=== PATIENT | female | born 1975 | race Caucasian/White ===

== ENCOUNTER 2018-01-11 10:44 | Emergency (ER) | payer BC ==
[~2018-01-11] VITALS: Ht 167.6 cm; Wt 253.1 kg
[~2018-01-11 10:44] MED LIST: ASPIRIN325 PO; AUGMENTIN 500-1 EACH PO; AZO CRANBERRY250 MG PO; CARVEDILOL12.5 MG PO; CEFUROXIME500 MG PO; CELEBREX 200 M200 M1 PO; CELEXA20 MG PO; CIPROFLOXACIN500 M1 PO; DULOXETINE HCL60 MG PO; HYDROCODONE-AP1 EAC6 PO; IBUPROFEN 800800 M1 PO; LASIX 20 MG TAB20 MG PO; LEVAQUIN 500 M500 MG PO; LISINOPRIL20 MG PO; LISINOPRIL40 MG PO; MACROBID 100 M100 M2 PO; METFORMIN HCL500 MG PO; NAPROSYN500 MG PO; NEURONTIN 300300 M1 PO; NORCO 5-325 TA1 EACH PO; ONDANSETRON HCL4 M2 PO; OXYCODONE HCL 55 MG PO; PHENERGAN 25 MG25 M1 PO; SENOKOT-S1 TA1 PO; TRAMADOL 50 MG50 MG PO; XANAX1 MG PO; XARELTO10 MG PO; ZOFRAN ODT4 MG PO
[2018-01-11 11:39] LABS: ABSOLUTE LYMPHOCYTES 2.9 thou/uL (0.8-5.3); NUCLEATED RBCS 0 /100WBC
[2018-01-11 11:41] LABS: ABSOLUTE BASOPHILS 0.2 thou/uL (0.0-0.2); ABSOLUTE EOSINOPHILS 0.9 thou/uL (0.0-0.7); ABSOLUTE MONOCYTES 0.7 thou/uL (0.0-1.2); ABSOLUTE NEUTROPHILS 5.2 thou/uL (1.6-8.1); BASOPHILS 2.2 %; EOSINOPHILS 8.7 %; HEMATOCRIT 40.3 % (37.0-47.0); HEMOGLOBIN 13.5 gm/dL (12.0-15.0); LYMPHOCYTES 29.1 %; MCH 27.9 pg (26.0-34.0); MCHC 33.4 g/dL (28.0-37.0); MCV 83.4 fL (80.0-100.0); MONOCYTES 7.2 %; PLATELET COUNT* 342 thou/uL (150-400); POLYS 52.8 %; RBC 4.83 mil/uL (4.20-5.00); RDW-CV 15.3 % (10.5-14.5); WBC 9.9 thou/uL (4.0-11.0)
[2018-01-11 11:44] LABS: ANION GAP 12 mmol/L (7-16); BUN 17 mg/dL (7-18); CALCIUM 9.2 mg/dL (8.5-10.1); CHLORIDE 101 mmol/L (98-107); CO2 27 mmol/L (21-32); CREATININE 1.1 mg/dL (0.6-1.3); GLUCOSE 225 mg/dL (70-99); SODIUM 140 mmol/L (136-145)
[2018-01-11 11:46] LABS: PROTIME 10.2 Seconds (9.20-11.50)
[2018-01-11 11:55] LABS: ALBUMIN 3.2 g/dL (3.4-5.0); ALKALINE PHOSPHATASE 55 U/L (46-116); LIPASE 80 U/L (73-393); NT-PRO BRAIN NAT PEPTIDE 37 pg/mL (<300); SGOT 57 U/L (15-37); SGPT 71 U/L (30-65); TOTAL BILIRUBIN 0.6 mg/dL (<0.1-1.0); TOTAL PROTEIN 6.9 g/dL (6.4-8.2); TROPONIN-I LEVEL <0.06 ng/mL (<0.06)
[2018-01-11] MEDS ORDERED: KEFLEX500 M1 PO (13:07)
[2018-01-11] MEDS ORDERED: BACTRIM DS TAB1 EACH PO (13:07)
[2018-01-11 13:18] VITALS: BP 134/81
--- NOTE | 2018-01-11 16:36 | EKG ---
[place] [address] ELECTROCARDIOGRAM REPORT Name: ANGELICA MARIN CATHERINE Room: [facility]#: [id number] Admission: 01/11/18 Attend Phys: Discharge: 01/11/18 Date of : 73 Report #: [id number] THIS REPORT FOR: //name// [facility] ED Test Date: 2018-01-11 Test Time: 11:17:51 Pat Name: ANGELICA MARIN Department: Room: Gender: F Resident Hall Director: STUDENT : 1975 Requested By: Ronnie Reynoso Order Number: [id number] MD: Jon Sanders Measurements Intervals [place] Rate: 107 P: 40 GA: 153 QRS: 27 QRSD: 118 T: 8 QT: 359 QTc: 479 Interpretive Statements Sinus tachycardia Low voltage, precordial leads Baseline wander in lead(s) V2 Compared to ECG 08/27/2016 09:34:23 Low QRS voltage now present Electronically Signed On 01-11-2018 16:36:33 [employer] by Jon Sanders [email or web address] <ELECTRONICALLY SIGNED> By: Jon Sanders MD, [facility] 01/11/18 1636 1117 1117 Jon Sanders MD, [facility] /EPI
== END 2018-01-11 13:19 | disposition home or self-care (01) ==
LOC: M.ERS 10:44
PROVIDERS: Emergency Medicine
DX: L03.116 Cellulitis of left lower limb (principal); F10.99 Alcohol use, unspecified with unspecified alcohol-induced disorder; I11.0 Hypertensive heart disease with heart failure; I50.9 Heart failure, unspecified; E11.9 Type 2 diabetes mellitus without complications; Z90.49 Acquired absence of other specified parts of digestive tract; Z96.659 Presence of unspecified artificial knee joint

== ENCOUNTER 2018-05-12 10:07 | Inpatient (IN) | payer BC ==
[~2018-05-12] VITALS: Ht 170.2 cm; Wt 198.2 kg
[~2018-05-12 10:07] MED LIST changes: +BACTRIM DS TAB1 EACH PO; +KEFLEX500 M1 PO
[2018-05-12 10:13] VITALS: BP 170/78
[2018-05-12] MEDS ORDERED: VENTOLIN HFA 1818 GM INH (10:21)
[2018-05-12] MEDS ORDERED: PULMICORT0.5 MG/22 INH (10:22)
[2018-05-12] MEDS ORDERED: FLEXERIL PO (10:22)
[2018-05-12] MEDS ORDERED: OMEPRAZOLE40 MG PO (10:23)
[2018-05-12] MEDS ORDERED: MAXZIDE-25 MG1 EACH PO (10:23)
[2018-05-12 10:42] LABS: URINE BLOOD 1+ (Negative); URINE CLARITY CLEAR; URINE COLOR YELLOW; URINE GLUCOSE-RANDOM 2+ (Negative); URINE LEUKOCYTES-REFLEX NEGATIVE (Negative); URINE NITRITE-REFLEX NEGATIVE (Negative); URINE PROTEIN 2+ (Negative); URINE SPECIFIC GRAVITY >= 1.030 (1.005-1.030); URINE UROBILINOGEN 0.2 E.U./dl (0.2-1.0)
[2018-05-12 10:47] LABS: URINE BILIRUBIN 2+ (Negative); URINE KETONES 3+ (Negative)
[2018-05-12 10:52] LABS: ICTOTEST (BILI CONFIRMATORY) Negative (Negative)
[2018-05-12 11:04] LABS: ACETEST (KETONE CONFIRMATORY) Large (Negative)
[2018-05-12 11:08] LABS: ABSOLUTE BASOPHILS 0.1 thou/uL (0.0-0.2); ABSOLUTE EOSINOPHILS 0.2 thou/uL (0.0-0.7); ABSOLUTE LYMPHOCYTES 1.9 thou/uL (0.8-5.3); ABSOLUTE MONOCYTES 1.2 thou/uL (0.0-1.2); ABSOLUTE NEUTROPHILS 9.5 thou/uL (1.6-8.1); BASOPHILS 0.9 %; EOSINOPHILS 1.6 %; HEMATOCRIT 33.5 % (37.0-47.0); HEMOGLOBIN 11.2 gm/dL (12.0-15.0); LYMPHOCYTES 14.4 %; MCHC 33.4 g/dL (28.0-37.0); MCV 83.7 fL (80.0-100.0); MONOCYTES 9.6 %; MPV 8.2 fl. (7.2-11.1); NUCLEATED RBCS 0 /100WBC; PLATELET COUNT* 546 thou/uL (150-400); POLYS 73.5 %; RDW-CV 14.5 % (10.5-14.5); WBC 12.9 thou/uL (4.0-11.0)
[2018-05-12 11:15] LABS: ANION GAP 23 mmol/L (7-16); BUN 10 mg/dL (7-18); CHLORIDE 95 mmol/L (98-107); CO2 14 mmol/L (21-32); CREATININE 0.9 mg/dL (0.6-1.3); GLUCOSE 368 mg/dL (70-99); POTASSIUM 3.5 mmol/L (3.5-5.1); SODIUM 132 mmol/L (136-145)
[2018-05-12 11:18] LABS: SQUAMOUS 4-10 Moderate /LPF (0-3)
[2018-05-12 11:19] LABS: BACTERIA-REFLEX 1-9 Few /HPF (None Seen); CASTS None Seen /LPF (None Seen); MUCUS 0-3 Light strn/LPF (None Seen); URINE RBC 3-10 Few /HPF (0-2); URINE WBC-REFLEX 0-5 Rare /HPF (0-5)
[2018-05-12 11:21] LABS: CRYSTALS None Seen /LPF (None Seen)
[2018-05-12 11:25] LABS: ALBUMIN 1.8 g/dL (3.4-5.0); ALKALINE PHOSPHATASE 106 U/L (46-116); LIPASE 260 U/L (73-393); SGOT 32 U/L (15-37); SGPT 25 U/L (30-65); TOTAL BILIRUBIN 0.7 mg/dL (<0.1-1.0); TOTAL PROTEIN 7.2 g/dL (6.4-8.2); TROPONIN-I LEVEL <0.06 ng/mL (<0.06)
[2018-05-12 12:24] LABS: BE -10.8 mmol/L (-2 to +3); HCO3 12.5 mmol/L (22.0-26.0); PCO2 22.2 mmHg (35.0-45.0); PO2 102.2 mmHg (75.0-100.0)
[2018-05-12 13:16] VITALS: BP 156/92
[2018-05-12 13:24] VITALS: BP 139/81
--- NOTE | 2018-05-12 15:14 | EKG ---
[place] [address] ELECTROCARDIOGRAM REPORT Name: ANGELICA MARIN Room: [address] IN [facility].#: [id number] Admission: 05/12/18 Attend Phys: Sandip Reyes MD Discharge: Date of : 73 Report #: [id number] THIS REPORT FOR: //name// [facility] ED Test Date: 2018-05-12 Test Time: 10:52:08 Pat Name: ANGELICA MARIN Department: Room: Gender: F Auto Mechanic: AFUA : 1975 Requested By: Caden Riddle Order Number: [id number] MD: Gavin Nieves Measurements Intervals [place] Rate: 112 P: 54 [place]: 145 QRS: 16 QRSD: 103 T: 2 QT: 354 QTc: 484 Interpretive Statements Sinus tachycardia Low voltage, precordial leads Borderline prolonged QT interval Baseline wander in lead(s) V2 Compared to ECG 01/11/2018 11:17:51 No significant changes Electronically Signed On 05-12-2018 15:14:28 CDT by Gavin Nieves [email or web address] <ELECTRONICALLY SIGNED> By: Gavin Nieves MD, [facility] 05/12/18 1514 1052 1052 Gavin Nieves MD, [facility] /EPI
--- NOTE | 2018-05-12 15:15 | EKG ---
[place] [address] ELECTROCARDIOGRAM REPORT Name: ANGELICA MARIN Room: [address] ADM IN M.R.#: [id number] Admission: 05/12/18 Attend Phys: Sandip Reyes MD Discharge: Date of : 73 Report #: [id number] THIS REPORT FOR: //name// [facility] Test Date: 2018-05-12 Test Time: 15:03:05 Pat Name: ANGELICA MARIN Department: Room: [address] Gender: F Hospice Plan Administrator: RASTA : 1975 Requested By: Sandip Reyes Order Number: [id number] Reading MD: Gavin Nieves Measurements Intervals [place] Rate: 119 P: 56 FL: 151 QRS: 23 QRSD: 96 T: 4 QT: 341 QTc: 480 Interpretive Statements Sinus tachycardia Low voltage, precordial leads Borderline T wave abnormalities Compared to ECG 01/11/2018 11:17:51 T-wave abnormality now present Electronically Signed On 05-12-2018 15:15:25 CDT by Gavin Nieves [email or web address] <ELECTRONICALLY SIGNED> By: Gavin Nieves MD, [facility] 05/12/18 1515 1503 1503 Gavin Nieves MD, [facility] /EPI
[2018-05-12 17:41] LABS: ALBUMIN 1.8 g/dL (3.4-5.0); CALCIUM 8.8 mg/dL (8.5-10.1); CREATININE 0.9 mg/dL (0.6-1.3); MAGNESIUM 1.7 mg/dL (1.8-2.4); PHOSPHORUS* 1.8 mg/dL (2.5-4.9)
[2018-05-12 17:50] LABS: POTASSIUM 2.9 mmol/L (3.5-5.1)
[2018-05-12 20:00] VITALS: BP 146/81
[2018-05-12 22:00] VITALS: BP 146/81
[2018-05-12 22:17] LABS: ALBUMIN 1.7 g/dL (3.4-5.0); CALCIUM 8.5 mg/dL (8.5-10.1); CREATININE 0.9 mg/dL (0.6-1.3); MAGNESIUM 1.6 mg/dL (1.8-2.4); PHOSPHORUS* 2.3 mg/dL (2.5-4.9); POTASSIUM 3.4 mmol/L (3.5-5.1)
[2018-05-12 23:42] VITALS: BP 130/55
[2018-05-13 02:00] VITALS: BP 112/71
[2018-05-13 02:44] LABS: ABSOLUTE BASOPHILS 0.1 thou/uL (0.0-0.2); ABSOLUTE EOSINOPHILS 0.3 thou/uL (0.0-0.7); ABSOLUTE LYMPHOCYTES 1.2 thou/uL (0.8-5.3); ABSOLUTE MONOCYTES 0.9 thou/uL (0.0-1.2); ABSOLUTE NEUTROPHILS 7.9 thou/uL (1.6-8.1); BASOPHILS 0.6 %; EOSINOPHILS 2.8 %; HEMATOCRIT 31.5 % (37.0-47.0); HEMOGLOBIN 10.3 gm/dL (12.0-15.0); LYMPHOCYTES 11.7 %; MCH 27.1 pg (26.0-34.0); MCHC 32.7 g/dL (28.0-37.0); MONOCYTES 9.1 %; MPV 7.4 fl. (7.2-11.1); NUCLEATED RBCS 0 /100WBC; PLATELET COUNT* 487 thou/uL (150-400); POLYS 75.8 %; RBC 3.79 mil/uL (4.20-5.00); RDW-CV 14.6 % (10.5-14.5); WBC 10.4 thou/uL (4.0-11.0)
[2018-05-13 02:57] LABS: CALCIUM 8.1 mg/dL (8.5-10.1); CREATININE 0.8 mg/dL (0.6-1.3); POTASSIUM 3.5 mmol/L (3.5-5.1)
[2018-05-13 04:00] VITALS: BP 123/57
[2018-05-13 08:00] VITALS: BP 121/82
[2018-05-13 12:16] LABS: URINE BLOOD TRACE (Negative); URINE CLARITY CLEAR; URINE COLOR YELLOW; URINE GLUCOSE-RANDOM 2+ (Negative); URINE KETONES 2+ (Negative); URINE LEUKOCYTES-REFLEX NEGATIVE (Negative); URINE NITRITE-REFLEX NEGATIVE (Negative); URINE PROTEIN 1+ (Negative); URINE UROBILINOGEN 0.2 E.U./dl (0.2-1.0)
[2018-05-13 12:26] LABS: ICTOTEST (BILI CONFIRMATORY) Negative (Negative); URINE BILIRUBIN 1+ (Negative)
[2018-05-13 13:15] VITALS: BP 98/68
[2018-05-13 15:50] VITALS: BP 133/77
--- NOTE | 2018-05-13 18:00 | CON ---
[address] [address] CONSULTATION Name: ANGELICA MARNI Room: [address] IN M.R.#: [id number] Admission: 05/12/18 Attend Phys: Sandip Reyes MD Discharge: Date of : 73 Report #: [id number] THIS REPORT FOR: //name// CC: Sandip Lr [place] DATE OF SERVICE: 05/13/2018 ATTENDING PHYSICIAN: Sandip Reyes M.D. REASON FOR EVALUATION: Febrile illness, possible complicated urinary tract infection. HISTORY OF PRESENT ILLNESS: Chart reviewed, patient examined. This is a 43-year-old morbidly obese woman with diabetes mellitus who presented to the emergency room with fevers, was confirmed to have low-grade temperature elevations while here, nausea with emesis, generalized myalgias. No new-onset eruptions. She notes onset of illness roughly 2 weeks ago. She does state she has burning with urination and does have frequent urinary tract infections, also more recently today feels like she is swallowing shards of glass, that is post-admission. She is generally lucid at this point. Urinalysis was not particularly remarkable. Imaging raised question of a possible perinephric hematoma. On questioning, she denies any particular exposure history. She has worked in an office. She is not particularly outside. No arthropod exposure, no animal exposure, no recent travel. No dietary indiscretion. She has been started empirically on piperacillin and tazobactam. ALLERGIES: None known. MEDICATIONS: Include insulin, carvedilol, pantoprazole, enoxaparin, Zosyn, duloxetine, metoprolol, alprazolam, docusate. PAST MEDICAL HISTORY: Diabetes mellitus type 2, history of hypertension, high cholesterol, cardiomyopathy with congestive heart failure, IBS with D. SOCIAL HISTORY: Nonsmoker, no ethanol, no illicit drug use. FAMILY HISTORY: Noncontributory. REVIEW OF SYSTEMS: As above. PHYSICAL EXAMINATION: GENERAL: She is morbidly obese, is in right lateral decubitus position. She is generally fairly lucid. She is in pzciinrz-al-uxkedx distress. VITAL SIGNS: Temperature 99.3, pulse 103, respirations 33, blood pressure 123/57[place] [address] CONSULTATION Name: ANGELICA MARIN Room: [address]#: [id number] Admission: 05/12/18 Attend Phys: Sandip Reyes MD Discharge: Date of : 73 Report #: [id number] SKIN: Warm, dry, no rashes. HEENT: Nasal cannula oxygen. NECK: Supple. LUNGS: Diminished breath sounds. HEART: Borderline tachycardic, regular. ABDOMEN: Obese, soft, nontender, nondistended, no peritoneal signs. GENITOURINARY AND RECTAL: Deferred. LABORATORY DATA: Shows CBC: White count of 12.9, H and H 11.2 and 33.5, platelets of 546. D-dimer is elevated at 3.44. Chest x-ray, no acute process. Urinalysis 3+ ketones, 2+ glucose, 2+ protein, 1+ blood, 0-5 white cells, 1-9 bacteria. Electrolytes: Sodium 132, potassium 3.5, chloride 95, bicarbonate is 14, anion gap is 23, BUN and creatinine 10 and 0.9, glucose of 368. LFTs unremarkable. Albumin of 1.8, total protein of 7.2. ABGs: A pH 7.370, pCO2 of 22.2, pO2 of 102.2. CTA chest PE protocol, no evidence of pulmonary embolus. CT abdomen and pelvis showed a left renal site of suspected subcapsular hematoma with extensive left perinephric and left retroperitoneal peritoneal fat stranding, hepatosplenomegaly. ASSESSMENT: Low-grade fevers in the setting of, I suspect is, a complicated genitourinary tract infection. We will continue piperacillin and tazobactam. In terms of the shards of glass, she is at risk for fungal infection complications such as esophagitis. We will add fluconazole. We will go ahead and get blood cultures. We will check a protein electrophoresis and urine culture as well. She certainly is at risk for nosocomial related infectious complications. We will try to increase her activity as allowed. <ELECTRONICALLY SIGNED> By: Jarrlel Robins MD 05/13/18 1800 0842 [id number] Robins MD /nt
[2018-05-13 20:00] VITALS: BP 105/62
[2018-05-14] VITALS: BP 128/64
[2018-05-14 04:00] VITALS: BP 115/77
[2018-05-14 05:04] LABS: ABSOLUTE EOSINOPHILS 0.3 thou/uL (0.0-0.7); ABSOLUTE LYMPHOCYTES 1.5 thou/uL (0.8-5.3); ABSOLUTE MONOCYTES 0.4 thou/uL (0.0-1.2); ABSOLUTE NEUTROPHILS 6.6 thou/uL (1.6-8.1); BASOPHILS 0.4 %; EOSINOPHILS 3.4 %; HEMATOCRIT 32.9 % (37.0-47.0); HEMOGLOBIN 10.7 gm/dL (12.0-15.0); LYMPHOCYTES 16.7 %; MCH 27.4 pg (26.0-34.0); MCHC 32.7 g/dL (28.0-37.0); MCV 83.8 fL (80.0-100.0); MPV 7.8 fl. (7.2-11.1); NUCLEATED RBCS 0 /100WBC; PLATELET COUNT* 480 thou/uL (150-400); POLYS 74.5 %; RBC 3.92 mil/uL (4.20-5.00); RDW-CV 14.9 % (10.5-14.5); WBC 8.8 thou/uL (4.0-11.0)
[2018-05-14 05:17] LABS: ALBUMIN 1.5 g/dL (3.4-5.0); ALKALINE PHOSPHATASE 117 U/L (46-116); ANION GAP 11 mmol/L (7-16); BUN 9 mg/dL (7-18); CALCIUM 8.2 mg/dL (8.5-10.1); CHLORIDE 103 mmol/L (98-107); CO2 22 mmol/L (21-32); CREATININE 0.8 mg/dL (0.6-1.3); GLUCOSE 251 mg/dL (70-99); PHOSPHORUS* 2.7 mg/dL (2.5-4.9); POTASSIUM 3.3 mmol/L (3.5-5.1); SGOT 30 U/L (15-37); SGPT 25 U/L (30-65); SODIUM 136 mmol/L (136-145); TOTAL BILIRUBIN 0.4 mg/dL (<0.1-1.0); TOTAL PROTEIN 6.4 g/dL (6.4-8.2)
[2018-05-14 07:57] VITALS: BP 129/79
[2018-05-14 11:59] VITALS: BP 120/54
[2018-05-14 15:42] VITALS: BP 104/59
[2018-05-14 20:00] VITALS: BP 103/72
[2018-05-14 20:36] LABS: URINE BILIRUBIN NEGATIVE (Negative); URINE BLOOD NEGATIVE (Negative); URINE CLARITY CLEAR; URINE COLOR YELLOW; URINE GLUCOSE-RANDOM 2+ (Negative); URINE KETONES NEGATIVE (Negative); URINE LEUKOCYTES NEGATIVE (Negative); URINE NITRITE NEGATIVE (Negative); URINE PROTEIN NEGATIVE (Negative); URINE UROBILINOGEN 0.2 E.U./dl (0.2-1.0)
[2018-05-15] VITALS (7 sets, daily range): BP systolic 90–140; BP diastolic 53–82
[2018-05-15 05:17] LABS: HEMATOCRIT 33.5 % (37.0-47.0); HEMOGLOBIN 11.3 gm/dL (12.0-15.0); MCH 28.1 pg (26.0-34.0); MCHC 33.7 g/dL (28.0-37.0); MCV 83.5 fL (80.0-100.0); RBC 4.01 mil/uL (4.20-5.00); RDW-CV 15.1 % (10.5-14.5); WBC 8.7 thou/uL (4.0-11.0)
[2018-05-16 04:00] VITALS: BP 93/54
[2018-05-16 05:17] LABS: HEMATOCRIT 32.4 % (37.0-47.0); HEMOGLOBIN 10.6 gm/dL (12.0-15.0); MCH 27.5 pg (26.0-34.0); MCHC 32.8 g/dL (28.0-37.0); MPV 7.8 fl. (7.2-11.1); RBC 3.86 mil/uL (4.20-5.00); RDW-CV 15.3 % (10.5-14.5); WBC 8.4 thou/uL (4.0-11.0)
[2018-05-16 05:31] LABS: CALCIUM 7.5 mg/dL (8.5-10.1); CREATININE 0.7 mg/dL (0.6-1.3); MAGNESIUM 1.6 mg/dL (1.8-2.4); POTASSIUM 3.7 mmol/L (3.5-5.1)
[2018-05-16 08:00] VITALS: BP 126/78
[2018-05-16 12:00] VITALS: BP 121/78
[2018-05-16 13:15] LABS: ANA INTERPRETATION Negative (Negative)
[2018-05-16 16:00] VITALS: BP 100/63
[2018-05-16 19:26] VITALS: BP 94/59
[2018-05-17 00:12] VITALS: BP 106/65
[2018-05-17 04:41] VITALS: BP 128/82
[2018-05-17 05:01] LABS: ABSOLUTE BASOPHILS 0.1 thou/uL (0.0-0.2); ABSOLUTE EOSINOPHILS 0.3 thou/uL (0.0-0.7); ABSOLUTE LYMPHOCYTES 2.6 thou/uL (0.8-5.3); ABSOLUTE MONOCYTES 0.8 thou/uL (0.0-1.2); ABSOLUTE NEUTROPHILS 5.5 thou/uL (1.6-8.1); BASOPHILS 1.5 %; EOSINOPHILS 3.7 %; HEMATOCRIT 32.6 % (37.0-47.0); HEMOGLOBIN 10.6 gm/dL (12.0-15.0); LYMPHOCYTES 27.3 %; MCHC 32.6 g/dL (28.0-37.0); MONOCYTES 8.7 %; MPV 7.7 fl. (7.2-11.1); NUCLEATED RBCS 0 /100WBC; PLATELET COUNT* 530 thou/uL (150-400); POLYS 58.8 %; RBC 3.93 mil/uL (4.20-5.00); RDW-CV 15.5 % (10.5-14.5); WBC 9.4 thou/uL (4.0-11.0)
[2018-05-17 05:38] LABS: ALBUMIN 1.5 g/dL (3.4-5.0); CALCIUM 8.2 mg/dL (8.5-10.1); CREATININE 0.7 mg/dL (0.6-1.3); POTASSIUM 3.3 mmol/L (3.5-5.1); TOTAL BILIRUBIN 0.2 mg/dL (<0.1-1.0); TOTAL PROTEIN 5.9 g/dL (6.4-8.2)
[2018-05-17 07:07] LABS: GLOBULIN TOTAL 3.6 g/dL (2.2-3.9); M-SPIKE Not Observed g/dL (Not Observed)
[2018-05-17 08:22] VITALS: BP 121/80
[2018-05-17 12:00] VITALS: BP 107/75
[2018-05-17 16:51] LABS: URINE BILIRUBIN NEGATIVE (Negative); URINE BLOOD NEGATIVE (Negative); URINE CLARITY CLEAR; URINE COLOR YELLOW; URINE GLUCOSE-RANDOM NEGATIVE (Negative); URINE KETONES NEGATIVE (Negative); URINE LEUKOCYTES-REFLEX NEGATIVE (Negative); URINE NITRITE-REFLEX NEGATIVE (Negative); URINE PROTEIN TRACE (Negative); URINE UROBILINOGEN 0.2 E.U./dl (0.2-1.0)
[2018-05-17 19:40] VITALS: BP 113/79
[2018-05-18] VITALS: BP 120/77
[2018-05-18 04:00] VITALS: BP 120/75
[2018-05-18 04:50] LABS: CALCIUM 7.8 mg/dL (8.5-10.1); CREATININE 0.7 mg/dL (0.6-1.3); POTASSIUM 3.4 mmol/L (3.5-5.1)
[2018-05-18 04:57] LABS: HEMATOCRIT 31.4 % (37.0-47.0); HEMOGLOBIN 10.3 gm/dL (12.0-15.0); MCH 27.3 pg (26.0-34.0); MCHC 32.8 g/dL (28.0-37.0); MCV 83.2 fL (80.0-100.0); MPV 7.7 fl. (7.2-11.1); RBC 3.78 mil/uL (4.20-5.00); RDW-CV 15.3 % (10.5-14.5); WBC 8.8 thou/uL (4.0-11.0)
[2018-05-18 08:02] VITALS: BP 133/84
[2018-05-18] MEDS ORDERED: NORCO 5-325 TA1 EACH PO (10:27)
[2018-05-18] MEDS ORDERED: LANTUS100 UNIT/M SUBQ (10:28)
[2018-05-18] MEDS ORDERED: HUMALOG100 UNIT/1 SUBQ (10:29)
[2018-05-18 10:36] VITALS: BP 133/84
[2018-05-18 11:20] VITALS: BP 133/84
[2018-05-18] MEDS ORDERED: AUGMENTIN 875-1 EACH PO (14:00)
[2018-05-18] MEDS ORDERED: PHENAZOPYRIDIN200 M2 PO (14:01)
== END 2018-05-18 14:30 | disposition home health service (06) | DRG 371 ==
LOC: M.ERS 10:07 → M.ICU 12:13 → M.TBA-ER 12:13 → M.2W 12:13 → M.ICU 13:37 → M.2W 05-13 14:55
PROVIDERS: Internal Medicine; Internal Medicine Cardiovascular Disease; Nurse Practitioner Family; Specialist; ADMIT Internal Medicine
PROC: B54MZZZ Ultrasonography of Right Upper Extremity Veins (ICD-10-PCS; principal; 2018-05-13)
PROC: 05HY33Z Insertion of Infusion Device into Upper Vein, Percutaneous Approach (ICD-10-PCS; principal; 2018-05-13)
DX: K68.9 Other disorders of retroperitoneum (principal); E11.10 Type 2 diabetes mellitus with ketoacidosis without coma; R65.10 Systemic inflammatory response syndrome (SIRS) of non-infectious origin without acute organ dysfunction; N39.0 Urinary tract infection, site not specified; I42.9 Cardiomyopathy, unspecified; Z68.44 Body mass index [BMI] 60.0-69.9, adult; E66.01 Morbid (severe) obesity due to excess calories; E86.0 Dehydration; M19.90 Unspecified osteoarthritis, unspecified site; I11.0 Hypertensive heart disease with heart failure; M25.542 Pain in joints of left hand; M25.541 Pain in joints of right hand; D64.9 Anemia, unspecified; K58.0 Irritable bowel syndrome with diarrhea; Z96.659 Presence of unspecified artificial knee joint; Z79.2 Long term (current) use of antibiotics; Z71.3 Dietary counseling and surveillance; Z79.4 Long term (current) use of insulin; Z79.899 Other long term (current) drug therapy; Z90.49 Acquired absence of other specified parts of digestive tract

== ENCOUNTER 2018-06-15 10:43 | Inpatient (IN) | payer BC ==
[~2018-06-15] VITALS: Ht 167.6 cm; Wt 184.6 kg
[~2018-06-15 10:43] MED LIST changes: +AUGMENTIN 875-1 EACH PO; +FLEXERIL PO; +HUMALOG100 UNIT/1 SUBQ; +LANTUS100 UNIT/M SUBQ; +MAXZIDE-25 MG1 EACH PO; +OMEPRAZOLE40 MG PO; +PHENAZOPYRIDIN200 M2 PO; +PULMICORT0.5 MG/22 INH; +VENTOLIN HFA 1818 GM INH
[2018-06-15 10:48] VITALS: BP 141/68
[2018-06-15] MEDS ORDERED: LANTUS100 UNIT/M SUBQ (10:58)
[2018-06-15 11:17] LABS: ABSOLUTE BASOPHILS 0.1 thou/uL (0.0-0.2); ABSOLUTE EOSINOPHILS 0.5 thou/uL (0.0-0.7); ABSOLUTE LYMPHOCYTES 2.6 thou/uL (0.8-5.3); ABSOLUTE MONOCYTES 0.6 thou/uL (0.0-1.2); ABSOLUTE NEUTROPHILS 4.5 thou/uL (1.6-8.1); BASOPHILS 0.9 %; EOSINOPHILS 5.6 %; HEMATOCRIT 32.7 % (37.0-47.0); HEMOGLOBIN 10.7 gm/dL (12.0-15.0); LYMPHOCYTES 31.3 %; MCH 26.7 pg (26.0-34.0); MCHC 32.7 g/dL (28.0-37.0); MCV 81.7 fL (80.0-100.0); MONOCYTES 7.2 %; MPV 7.2 fl. (7.2-11.1); NUCLEATED RBCS 0 /100WBC; PLATELET COUNT* 483 thou/uL (150-400); RBC 4.01 mil/uL (4.20-5.00); RDW-CV 15.3 % (10.5-14.5); WBC 8.2 thou/uL (4.0-11.0)
[2018-06-15 11:24] LABS: URINE BILIRUBIN NEGATIVE (Negative); URINE BLOOD NEGATIVE (Negative); URINE CLARITY CLEAR; URINE COLOR YELLOW; URINE GLUCOSE-RANDOM NEGATIVE (Negative); URINE KETONES NEGATIVE (Negative); URINE LEUKOCYTES-REFLEX 1+ (Negative); URINE NITRITE-REFLEX NEGATIVE (Negative); URINE PROTEIN NEGATIVE (Negative); URINE UROBILINOGEN 0.2 E.U./dl (0.2-1.0)
[2018-06-15 11:27] LABS: ANION GAP 14 mmol/L (7-16); BUN 92 mg/dL (7-18); CALCIUM 9.7 mg/dL (8.5-10.1); CHLORIDE 105 mmol/L (98-107); CO2 15 mmol/L (21-32); CREATININE 2.7 mg/dL (0.6-1.3); GLUCOSE 158 mg/dL (70-99); SODIUM 134 mmol/L (136-145)
[2018-06-15 11:31] LABS: APTT 30.9 Seconds (25.0-31.3); INR 1.1; PROTIME 10.5 Seconds (9.20-11.50)
[2018-06-15 11:36] LABS: BE -12.1 mmol/L (-2 to +3); HCO3 14.8 mmol/L (22.0-26.0); PCO2 VENOUS 37.3 mmHg (41.0-51.0); PO2 VENOUS 36.4 mmHg (35.0-45.0)
[2018-06-15 11:38] LABS: ALBUMIN 3.4 g/dL (3.4-5.0); ALKALINE PHOSPHATASE 69 U/L (46-116); NT-PRO BRAIN NAT PEPTIDE 76 pg/mL (<300); SGOT 44 U/L (15-37); SGPT 39 U/L (30-65); TOTAL BILIRUBIN 0.6 mg/dL (<0.1-1.0); TOTAL PROTEIN 8.3 g/dL (6.4-8.2)
[2018-06-15 11:42] LABS: POTASSIUM 6.4 mmol/L (3.5-5.1)
[2018-06-15 11:48] LABS: BACTERIA-REFLEX 1-9 Few /HPF (None Seen); CRYSTALS None Seen /LPF (None Seen); FINE GRANULAR CASTS 0-3 Few /LPF (None Seen); MUCUS 0-3 Light strn/LPF (None Seen); SQUAMOUS 0-3 Few /LPF (0-3); URINE RBC 0-2 Rare /HPF (0-2); URINE WBC-REFLEX 6-15 Few /HPF (0-5)
[2018-06-15 14:13] LABS: URINE POTASSIUM-RANDOM 32.4 mmol/L
[2018-06-15 14:41] VITALS: BP 134/62
[2018-06-15 15:49] VITALS: BP 122/78
--- NOTE | 2018-06-15 17:37 | EKG ---
[place] [address] ELECTROCARDIOGRAM REPORT Name: ANGELICA MARIN Room: [address] ADM IN .R.#: [id number] Admission: 06/15/18 Attend Phys: Horacio Reeves MD Discharge: Date of : 73 Report #: [id number] THIS REPORT FOR: //name// [facility] ED Test Date: 2018-06-15 Test Time: 10:53:23 Pat Name: ANGELICA MARIN Department: Room: [facility] Gender: F All Around Patternmaker: Jayson BANGURA : 1975 Requested By: Ynes Morrison Order Number: [id number] MD: Patrick Williamson Measurements Intervals [place] Rate: 104 P: 52 DE: 163 QRS: 35 QRSD: 101 T: 2 QT: 332 QTc: 437 Interpretive Statements Sinus tachycardia Low voltage, precordial leads Baseline wander in lead(s) V3,V6 Compared to ECG 05/12/2018 15:03:05 T-wave abnormality no longer present Electronically Signed On 06-15-2018 17:37:41 CDT by Patrick Williamson [email or web address] <ELECTRONICALLY SIGNED> By: Patrick Williamson MD, [facility] 06/15/18 1737 1053 1053 Patrick Williamson MD, [facility] /EPI
[2018-06-15 20:15] VITALS: BP 110/64
[2018-06-16 03:58] LABS: HEMATOCRIT 31.2 % (37.0-47.0); HEMOGLOBIN 10.1 gm/dL (12.0-15.0); MCH 26.6 pg (26.0-34.0); MCHC 32.4 g/dL (28.0-37.0); MPV 7.6 fl. (7.2-11.1); RBC 3.8 mil/uL (4.20-5.00); RDW-CV 15.8 % (10.5-14.5); WBC 8.5 thou/uL (4.0-11.0)
[2018-06-16 04:10] LABS: ALBUMIN 3.2 g/dL (3.4-5.0); CALCIUM 8.6 mg/dL (8.5-10.1); CREATININE 2.4 mg/dL (0.6-1.3); MAGNESIUM 1.4 mg/dL (1.8-2.4); PHOSPHORUS* 6.1 mg/dL (2.5-4.9)
[2018-06-16 08:00] VITALS: BP 138/65
[2018-06-16 15:45] VITALS: BP 104/54
[2018-06-16 20:45] VITALS: BP 98/59
[2018-06-17] VITALS: BP 97/48
[2018-06-17 04:24] VITALS: BP 105/57
[2018-06-17 04:53] LABS: ALBUMIN 2.9 g/dL (3.4-5.0); CALCIUM 8.7 mg/dL (8.5-10.1); CREATININE 2.3 mg/dL (0.6-1.3); MAGNESIUM 1.6 mg/dL (1.8-2.4); PHOSPHORUS* 5.1 mg/dL (2.5-4.9)
[2018-06-17 08:15] VITALS: BP 94/44
[2018-06-17 15:47] VITALS: BP 101/53
[2018-06-17 21:10] VITALS: BP 110/60
[2018-06-18 00:35] VITALS: BP 106/61
[2018-06-18 04:40] LABS: HEMATOCRIT 28.5 % (37.0-47.0); HEMOGLOBIN 9.4 gm/dL (12.0-15.0); MCH 26.9 pg (26.0-34.0); MCV 81.5 fL (80.0-100.0); MPV 7.6 fl. (7.2-11.1); RBC 3.5 mil/uL (4.20-5.00); RDW-CV 15.5 % (10.5-14.5); WBC 7.2 thou/uL (4.0-11.0)
[2018-06-18 04:47] VITALS: BP 89/42
[2018-06-18 05:06] VITALS: BP 102/61
[2018-06-18 05:27] LABS: CALCIUM 8.3 mg/dL (8.5-10.1); MAGNESIUM 1.5 mg/dL (1.8-2.4); POTASSIUM 3.9 mmol/L (3.5-5.1)
[2018-06-18 09:33] VITALS: BP 102/70
[2018-06-18 15:50] VITALS: BP 106/74
[2018-06-18 21:30] VITALS: BP 97/58
[2018-06-19 00:18] VITALS: BP 101/56
[2018-06-19 04:12] VITALS: BP 94/57
[2018-06-19 04:44] LABS: HEMATOCRIT 27.8 % (37.0-47.0); MCH 26.5 pg (26.0-34.0); MCHC 32.5 g/dL (28.0-37.0); MCV 81.7 fL (80.0-100.0); MPV 7.6 fl. (7.2-11.1); RBC 3.41 mil/uL (4.20-5.00); RDW-CV 15.6 % (10.5-14.5); WBC 6.6 thou/uL (4.0-11.0)
[2018-06-19 05:24] LABS: CALCIUM 8.3 mg/dL (8.5-10.1); MAGNESIUM 1.9 mg/dL (1.8-2.4); POTASSIUM 3.8 mmol/L (3.5-5.1)
[2018-06-19 10:06] VITALS: BP 95/46
--- NOTE | 2018-06-19 11:11 | CON ---
[address] [address] CONSULTATION Name: J LUISPARTHANGELICA J Room: [address] IN M.R.#: [id number] Admission: 06/15/18 Attend Phys: Horacio Reeves MD Discharge: Date of : 73 Report #: [id number] THIS REPORT FOR: //name// CC: Horacio Cole CONSULTING PHYSICIAN: Horacio Reeves MD REASON FOR CONSULTATION: Acute kidney injury. HISTORY OF PRESENT ILLNESS: A 43-year-old female who was admitted from [facility]rology Clinic with a rising creatinine. She recently was hospitalized here with DKA, UTI and left renal/retroperitoneal collection which is being followed by Urology. I am asked to see her because of a rising creatinine. On 05/18, creatinine was 0.7, as an outpatient it was 3.1 and on admission here it was 2.7. She has been on lisinopril, Celebrex and hydrochlorothiazide, but denies that any of these are new medications. She does not take any NSAIDs. Denies any vomiting or diarrhea. She has had some nausea. She otherwise feeling well and has no changes. No recent fall or trauma. REVIEW OF SYSTEMS: Constitutional, psych, heme, eyes, ENT, respiratory, cardiac, GI, , endocrine, all negative except as documented above. PAST MEDICAL HISTORY: Hypertension, diabetes type 2, adrenal nodule, history of cholecystectomy. FAMILY HISTORY: Not pertinent in this 43-year-old female. SOCIAL HISTORY: No tobacco. CURRENT MEDICATIONS: Reviewed. PHYSICAL EXAMINATION: VITAL SIGNS: Blood pressure 122/78, pulse in the upper 90s to low 100s, respirations 18 and temperature 36.5. GENERAL: No acute distress. EYES: Extraocular movements intact. EARS: Externally normal. CARDIOVASCULAR: Regular rate. LUNGS: No crackles. ABDOMEN: Soft, obese, nontender. MUSCULOSKELETAL: Nontender. PSYCHIATRIC: Awake, alert. LABORATORY DATA: White cell count 8. , hemoglobin 10.7, platelets 43. Sodium 134, potassium 6.4, chloride 105, bicarbonate 15, BUN 92, creatinine 2.7, glucose 158, albumin 3.4, calcium 9[place] [address] CONSULTATION Name: ANGELICA MARIN Room: [address] IN [facility]#: [id number] Admission: 06/15/18 Attend Phys: Horacio Reeves MD Discharge: Date of : 73 Report #: [id number] ASSESSMENT: 1. Acute kidney injury, suspect a component of intravascular volume depletion while on lisinopril, Celebrex, hydrochlorothiazide. UA is noted. Kidney ultrasound was unrevealing. On 05/18 creatinine 0.7, outpatient creatinine 3.1, admission creatinine 2.7. 2. Hyperkalemia in the setting of renal insufficiency, lisinopril, and triamterene. 3. Left renal collection which is stable on ultrasound and being followed by Urology. 4. Adrenal nodule, which is being worked up as an outpatient. 5. Diabetes. 6. Anemia, which is stable. 7. Metabolic acidosis. PLAN: 1. Currently has normal saline at 100 mL an hour ordered. We will change this to half normal saline with 75 of bicarbonate to treat the metabolic acidosis and help with the hyperkalemia. 2. She received medical treatment of the hyperkalemia and a repeat is an order. 3. 2 gram dietary protein restriction. 4. Urine culture has been ordered. 5. We will check labs again in the a.m. Thank you for requesting my opinion in the care and management of this patient. <ELECTRONICALLY SIGNED> By: Brooke Aldridge MD 06/19/18 1111 1711 [id number] Aldridge MD /nt
[2018-06-19 14:56] VITALS: BP 115/70
[2018-06-19 14:57] VITALS: BP 109/68; BP 117/78
[2018-06-19 20:00] VITALS: BP 107/73
[2018-06-20 04:00] VITALS: BP 131/86
[2018-06-20 05:30] LABS: HEMATOCRIT 27.7 % (37.0-47.0); HEMOGLOBIN 9.1 gm/dL (12.0-15.0); MCH 26.9 pg (26.0-34.0); MCHC 32.8 g/dL (28.0-37.0); MCV 81.8 fL (80.0-100.0); MPV 7.3 fl. (7.2-11.1); RBC 3.39 mil/uL (4.20-5.00); RDW-CV 15.4 % (10.5-14.5); WBC 6.4 thou/uL (4.0-11.0)
[2018-06-20 05:42] LABS: ALBUMIN 2.7 g/dL (3.4-5.0); CALCIUM 8.3 mg/dL (8.5-10.1); CREATININE 1.7 mg/dL (0.6-1.3); MAGNESIUM 1.5 mg/dL (1.8-2.4); POTASSIUM 3.9 mmol/L (3.5-5.1); TOTAL BILIRUBIN 0.4 mg/dL (<0.1-1.0); TOTAL PROTEIN 6.2 g/dL (6.4-8.2)
[2018-06-20 08:00] VITALS: BP 90/61
[2018-06-20 20:00] VITALS: BP 105/67
[2018-06-21 04:09] LABS: GLYCOHEMOGLOBIN (HGB A1C) 8.7 % (4.8-5.6)
[2018-06-21 04:23] LABS: CALCIUM 8.3 mg/dL (8.5-10.1); CREATININE 1.6 mg/dL (0.6-1.3); POTASSIUM 3.8 mmol/L (3.5-5.1)
[2018-06-21 09:00] VITALS: BP 122/77
[2018-06-21] MEDS ORDERED: ALPRAZOLAM0.5 M2 PO (11:23)
[2018-06-21] MEDS ORDERED: NEURONTIN 300300 M1 PO (11:23)
[2018-06-21] MEDS ORDERED: OXYCODONE HCL 55 MG PO (11:23)
[2018-06-21] MEDS ORDERED: VENLAFAXIN37.5 MG/1 PO (11:23)
[2018-06-21] MEDS ORDERED: FLEXERIL PO (11:23)
[2018-06-21] MEDS ORDERED: LIDOPATCH1 EACH TOP (11:32)
[2018-06-21] MEDS ORDERED: BENADRYL25 MG PO (13:09)
[2018-06-21] MEDS ORDERED: MELATONIN5 M1 PO (13:11)
[2018-06-21 13:13] VITALS: BP 122/77
[2018-06-21 15:45] VITALS: BP 114/73
== END 2018-06-21 18:46 | disposition home or self-care (01) | DRG 682 ==
LOC: M.ERS 10:43 → M.ORTHSURG 12:50 → M.TBA-ER 12:50 → M.ORTHSURG 14:13
PROVIDERS: Family Medicine; Internal Medicine; ADMIT Internal Medicine
DX: N17.0 Acute kidney failure with tubular necrosis (principal); R65.11 Systemic inflammatory response syndrome (SIRS) of non-infectious origin with acute organ dysfunction; E87.2 Acidosis; N39.0 Urinary tract infection, site not specified; Z68.44 Body mass index [BMI] 60.0-69.9, adult; S37.012A Minor contusion of left kidney, initial encounter; Z87.440 Personal history of urinary (tract) infections; I50.9 Heart failure, unspecified; I11.0 Hypertensive heart disease with heart failure; E11.9 Type 2 diabetes mellitus without complications; E66.9 Obesity, unspecified; E87.5 Hyperkalemia; D64.9 Anemia, unspecified; E27.9 Disorder of adrenal gland, unspecified; E66.01 Morbid (severe) obesity due to excess calories; E86.0 Dehydration; Z96.659 Presence of unspecified artificial knee joint; E83.42 Hypomagnesemia; F32.9 Major depressive disorder, single episode, unspecified; F41.9 Anxiety disorder, unspecified; Z90.49 Acquired absence of other specified parts of digestive tract; Z79.899 Other long term (current) drug therapy; Z79.4 Long term (current) use of insulin

== ENCOUNTER 2019-03-23 17:39 | Emergency (ER) | payer OTHER ==
[~2019-03-23] VITALS: Ht 167.6 cm; Wt 190.5 kg
[~2019-03-23 17:39] MED LIST changes: +ALPRAZOLAM0.5 M2 PO; +BENADRYL25 MG PO; +LIDOPATCH1 EACH TOP; +MELATONIN5 M1 PO; +VENLAFAXIN37.5 MG/1 PO
[2019-03-23] MEDS ORDERED: PROZAC20 MG PO (17:50)
[2019-03-23] MEDS ORDERED: ALLEGRA ALLERGY60 MG PO (17:51)
[2019-03-23] MEDS ORDERED: TRAMADOL 50 MG50 MG PO (17:51)
[2019-03-23] MEDS ORDERED: MAXZIDE-25 MG1 EACH PO (17:52)
[2019-03-23] MEDS ORDERED: FLEXERIL PO (17:52)
[2019-03-23] MEDS ORDERED: LIPITOR10 MG PO (17:52)
[2019-03-23] MEDS ORDERED: METFORMIN HCL500 MG PO (17:52)
[2019-03-23] MEDS ORDERED: KLOR-CON 1010 MEQ PO (17:52)
[2019-03-23 18:35] LABS: ABSOLUTE BASOPHILS 0.4 thou/uL (0.0-0.2); ABSOLUTE EOSINOPHILS 0.7 thou/uL (0.0-0.7); ABSOLUTE LYMPHOCYTES 4.5 thou/uL (0.8-5.3); ABSOLUTE NEUTROPHILS 7.1 thou/uL (1.6-8.1); BASOPHILS 2.8 %; EOSINOPHILS 5.2 %; HEMATOCRIT 39.1 % (37.0-47.0); HEMOGLOBIN 13.1 gm/dL (12.0-15.0); LYMPHOCYTES 32.8 %; MCH 26.4 pg (26.0-34.0); MCHC 33.5 g/dL (28.0-37.0); MONOCYTES 7.2 %; MPV 7.6 fl. (7.2-11.1); NUCLEATED RBCS 0 /100WBC; PLATELET COUNT* 391 thou/uL (150-400); RBC 4.95 mil/uL (4.20-5.00); RDW-CV 15.5 % (10.5-14.5); WBC 13.7 thou/uL (4.0-11.0)
[2019-03-23 18:46] LABS: CREATININE 1.1 mg/dL (0.6-1.3); POTASSIUM 3.7 mmol/L (3.5-5.1)
[2019-03-23 18:51] LABS: ALBUMIN 3.1 g/dL (3.4-5.0); TOTAL BILIRUBIN 0.8 mg/dL (<0.1-1.0); TOTAL PROTEIN 7.4 g/dL (6.4-8.2)
[2019-03-23 20:21] LABS: URINE BILIRUBIN NEGATIVE (Negative); URINE BLOOD NEGATIVE (Negative); URINE CLARITY CLEAR; URINE COLOR YELLOW; URINE GLUCOSE-RANDOM NEGATIVE (Negative); URINE KETONES NEGATIVE (Negative); URINE LEUKOCYTES-REFLEX NEGATIVE (Negative); URINE NITRITE-REFLEX NEGATIVE (Negative); URINE PROTEIN NEGATIVE (Negative); URINE UROBILINOGEN 0.2 E.U./dl (0.2-1.0)
[2019-03-23 21:47] LABS: AMP/METHAMP Negative (Negative); BARBITURATES Negative (Negative); BENZODIAZEPINES Negative (Negative); COCAINE Negative (Negative); METHADONE Negative (Negative); OPIATES Negative (Negative); PCP Negative (Negative); THC Negative (Negative)
[2019-03-23] MEDS ORDERED: NORCO 5-325 TA1 EACH PO (22:12)
[2019-03-23 23:07] VITALS: BP 188/109
--- NOTE | 2019-03-24 10:49 | EKG ---
[place] [address] ELECTROCARDIOGRAM REPORT Name: ANGELICA MARIN Room: [facility]#: [id number] Admission: 03/23/19 Attend Phys: Discharge: 03/23/19 Date of : 73 Report #: [id number] THIS REPORT FOR: //name// [facility] ED Test Date: 2019-03-23 Test Time: 21:22:58 Pat Name: ANGELICA MARIN Department: Room: Gender: F Change Control Manager: JAMES : 1975 Requested By: Asif Patel Order Number: [id number] MD: Patrick Williamson Measurements Intervals [place] Rate: 98 P: 63 SC: 142 QRS: 42 QRSD: 105 T: 26 QT: 389 QTc: 497 Interpretive Statements Sinus rhythm Borderline prolonged QT interval Compared to ECG 02/22/2019 11:17:30 Sinus tachycardia no longer present Inferior Q waves no longer present Electronically Signed On 03-24-2019 10:49:14 CDT by Patrick Williamson [email or web address] <ELECTRONICALLY SIGNED> By: Patrick Williamson MD, [facility] 03/24/19 1049 21 21 Patrick Williamson MD, [facility] /EPI
== END 2019-03-23 23:07 | disposition home or self-care (01) ==
LOC: M.ERS 17:39
PROVIDERS: Emergency Medicine; Nurse Practitioner Family
DX: M54.6 Pain in thoracic spine (principal); I11.0 Hypertensive heart disease with heart failure; I50.9 Heart failure, unspecified; E11.9 Type 2 diabetes mellitus without complications; E66.9 Obesity, unspecified; Z68.44 Body mass index [BMI] 60.0-69.9, adult; Z96.652 Presence of left artificial knee joint; Z90.49 Acquired absence of other specified parts of digestive tract